=== PATIENT | male | born 1970 | race Two or more races ===

== ENCOUNTER 2019-01-25 17:44 | Emergency (ER) | payer SELFPAY ==
[~2019-01-25] VITALS: Ht 170.2 cm; Wt 99.8 kg
[2019-01-25 18:51] VITALS: BP 133/90
[2019-01-25] MEDS ORDERED: cefTRIAXone SOD 1,000 MG VL IM ONE (19:15)
[2019-01-25] MEDS ORDERED: IBUPROFEN 600 MG TAB PO ONE (19:15)
== END 2019-01-25 19:57 | disposition home or self-care (01) ==
LOC: ER 17:44
DX: L03.011 Cellulitis of right finger (principal)
CPT/HCPCS: 96372; 99283; J0696